=== PATIENT | female | born 1985 | race Caucasian/White ===

== ENCOUNTER 2016-05-24 18:55 | Emergency (ER) | payer MEDICAID ==
--- NOTE | 2016-05-24 20:13 | ED Physician Chart ---
Chief Complaint/HPI - Patient Information Date Seen:: 05/24/16 Time Seen:: 20:12 Chief Complaint:: rash on lip History of Present Illness:: few days hx of rash on outside of rt upper lip. mild tingly feeling. no fever, no uri hx. pt has had kike oral lip sores in past ...not recent. she tried abreva on lesion wo relief. no other carmina pmh. Allergies:: Allergies Allergy/AdvReac Type Severity Reaction Status Date / Time cephalexin monohydrate Allergy Verified 02/04/16 22:10 [From Keflex] Sulfa (Sulfonamide Allergy Verified 02/04/16 22:10 Antibiotics) Vitals:: Vital Signs - 8 hr 05/24/16 19:28 Temp 97.9 F HR 63 RR 18 BP 116/69 O2 Sat % 98 Historian:: Patient Review of Systems - Review of Systems General/Constitutional: No fever, No chills, No weight loss, No weakness, No diaphoresis, No edema, No loss of appetite Skin: Skin lesions, Rash, No bruising Head: No headache, No light-headedness Eyes: No loss of vision, No pain, No diplopia ENT: No earache, No nasal drainage, No sore throat, No tinnitus Neck: No neck pain, No swelling, No thyromegaly, No stiffness, No mass noted Cardio Vascular: No chest pain, No palpitations, No PND, No orthopnea, No edema Pulmonary: No SOB, No cough, No sputum, No wheezing GI: No nausea, No vomiting, No diarrhea, No pain, No melena, No hematochezia, No constipation, No hematemesis G/U: No dysuria, No frequency, No hematuria Musculoskeletal: No bone or joint pain, No back pain, No muscle pain Endocrine: No polyuria, No polydipsia Psychiatric: No prior psych history, No depression, No anxiety, No suicidal ideation Hematopoietic: No bruising, No lymphadenopathy Allergic/Immuno: No urticaria, No angioedema Neurological: No syncope, No focal symptoms, No weakness, No paresthesia, No headache, No seizure, No dizziness, No confusion, No vertigo Past Medical History - Past Medical History Past Medical History: No significant medical hx Social History: Non Smoker Medication: Reviewed Family Medical History - Family Member Mother Hx Family Hypertension: Yes Hx Family Diabetes: Yes Physical Exam - Physical Examination General/Constitutional: Awake, Well-developed, well-nourished, Alert, No distress, GCS 15, Non-toxic appearing, Ambulatory Head: Atraumatic Eyes: Lids, conjuctiva normal, PERRL, EOMI Skin: Nl inspection, No rash, No skin lesions, No ecchymosis, Well hydrated, No lymphadenopathy ENMT: External ears, nose nl, Nasal exam nl, Lips, teeth, gums nl Other ENMT comments:: fingertip sized red blistered area above nury border at rt upper lip region. nontndr. blisters are yellow colored fluid containing. no intraoral lesion. no cough. no sob. no oral edema. no lesions at tip of nose. no ocular irritation Neck: Nontender, Full ROM w/o pain, No JVD, No nuchal rigidity, No bruit, No mass, No stridor Respiratory: Nl effort/Exclusion, Clear to Auscultation, No Wheeze/Rhonchi/Rales Cardio Vascular: RRR, No murmur, gallop, rubs, NL S1 S2 GI: No tenderness/rebounding/guarding, No organomegaly, No hernia, Normal BS's, Nondistended, No mass/bruits, No McBurney tenderness : No CVA tenderness Extremities: No tenderness or effusion, Full ROM, normal strength in all extremities, No edema, Normal digits & nails Neuro/Psych: Alert/oriented, DTR's symmetric, Normal sensory exam, Normal motor strength, Judgement/insight normal, Mood normal, Normal gait, No focal deficits Misc: normal gait, Normal back, No paraspinal tenderness ED Septic Shock - . 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 - Aftercare/Follow up Instructions Aftercare/Follow-Up Instructions:: Counseled pt regarding lab results/diagnosis & need follow up Medication Prescribed:: rx biaxin and valtrex. pt to see pmd in next few days for rechk...or return if worse. - Patient Disposition Discharge/Transfer:: Home Condition at Disposition:: Unchanged
== END 2016-05-24 20:30 | disposition home or self-care (01) ==
LOC: ER 18:55
DX: K13.0 Diseases of lips (principal); Z88.2 Allergy status to sulfonamides; Z88.8 Allergy status to other drugs, medicaments and biological substances
CPT/HCPCS: Z7502

== ENCOUNTER 2016-07-07 18:59 | Emergency (ER) | payer MEDICAID ==
--- NOTE | 2016-07-07 19:53 | ED Physician Chart ---
Chief Complaint/HPI - Patient Information Date Seen:: 07/07/16 Time Seen:: 19:30 Chief Complaint:: pain right foot History of Present Illness:: last attempted to IV inject heroin 5 days ago. Can't remember if she tried to inject in her right foot but she has done so in the past. Awoke this am with pain dorsum right foot which has rapidly increased in severity. No other right foot trauma. No chills, fever, back pain. Last tetanus booster about 1 year ago. Allergies:: Allergies Allergy/AdvReac Type Severity Reaction Status Date / Time cephalexin monohydrate Allergy HIVES Verified 07/07/16 19:28 [From Keflex] Sulfa (Sulfonamide Allergy HIVES Verified 07/07/16 19:28 Antibiotics) Vitals:: Vital Signs - 8 hr 07/07/16 19:05 Temp 97.5 F HR 88 RR 20 BP 116/53 O2 Sat % 100 Historian:: Patient Review:: Nurse's Note Reviewed Review of Systems - Review of Systems General/Constitutional: No fever, No chills Skin: Skin lesions Head: No headache Eyes: No loss of vision ENT: No earache Neck: No neck pain Cardio Vascular: No chest pain, No palpitations Pulmonary: No SOB, No cough GI: No nausea, No vomiting, No diarrhea G/U: No dysuria Musculoskeletal: Bone or joint pain Endocrine: No polyuria, No polydipsia Psychiatric: No depression, No anxiety Hematopoietic: No bruising Allergic/Immuno: No urticaria Neurological: No syncope, No focal symptoms Past Medical History - Past Medical History Past Medical History: No significant medical hx Family History: HTN Social History: Smoker, Illicit Drug Use, Employed Surgical History: Cholecystectomy, , other (tubal ligation) Psychiatricy History: None Medication: None Family Medical History - Family Member Mother Hx Family Hypertension: Yes Hx Family Diabetes: Yes Physical Exam - Physical Examination General/Constitutional: Well-developed, well-nourished, Alert, No distress Head: Atraumatic Eyes: Lids, conjuctiva normal Other Skin comments:: redness and tenderness of dorsum right foot; 2 cm of bright erythema of dorsum ENMT: External ears, nose nl, TM canals nl, Nasal exam nl, Lips, teeth, gums nl , Oropharynx nl, Tonsils nl Neck: No nuchal rigidity Respiratory: Nl effort/Exclusion, Clear to Auscultation, No Wheeze/Rhonchi/Rales Cardio Vascular: RRR, No murmur, gallop, rubs, NL S1 S2 GI: No tenderness/rebounding/guarding, No organomegaly, Normal BS's : No CVA tenderness Extremities: No tenderness or effusion, Full ROM Neuro/Psych: Alert/oriented Misc: Normal back ED Septic Shock - . Is Septic Shock (SBP<90, OR Lactate>4 mmol\L) present?: No - <6hrs of presentation: Vital Signs: Vital Signs - 8 hr 07/07/16 19:05 Temp 97.5 F HR 88 RR 20 BP 116/53 O2 Sat % 100 Reassessment (Disposition) - Reassessment Reassessment:: Patient urged to return immediately if redness or pain increases of fever occurs. Reassessment Condition:: Unchanged - Diagnosis Diagnosis:: Cellulitis right foot - Aftercare/Follow up Instructions Aftercare/Follow-Up Instructions:: Refer to Discharge Instructions Medication Prescribed:: Clindamycin 300 mg QID for 10 days - Patient Disposition Discharge/Transfer:: Home Condition at Disposition:: Stable, Unchanged
== END 2016-07-07 20:15 | disposition home or self-care (01) ==
LOC: ER 18:59
DX: L03.115 Cellulitis of right lower limb (principal); F17.200 Nicotine dependence, unspecified, uncomplicated; Z88.2 Allergy status to sulfonamides; Z88.1 Allergy status to other antibiotic agents
CPT/HCPCS: Z7502; Z7610

== ENCOUNTER 2016-07-10 23:37 | Emergency (ER) | payer MEDICAID ==
[2016-07-11] MEDS ORDERED: EPINEPHRine /Lidocaine 1% 20 mL Vial INJ ONE ×2 (00:08→00:11)
--- NOTE | 2016-07-11 00:16 | ED Physician Chart ---
Chief Complaint/HPI - Patient Information Date Seen:: 07/11/16 Time Seen:: 23:55 Chief Complaint:: right foot pain History of Present Illness:: pt seen here for IV drug injection site infection with cellulitis 07/07. got clindamycin with 'much better appaerance' per pt but now has central area of red , painful, swelling. Allergies:: Allergies Allergy/AdvReac Type Severity Reaction Status Date / Time cephalexin monohydrate Allergy HIVES Verified 07/07/16 19:28 [From Keflex] Sulfa (Sulfonamide Allergy HIVES Verified 07/07/16 19:28 Antibiotics) Vitals:: Vital Signs - 8 hr 07/10/16 23:55 Temp 98.6 F HR 94 RR 18 BP 139/94 O2 Sat % 100 Historian:: Patient, Family Member Review:: Nurse's Note Reviewed, Old Chart Reviewed Review of Systems - Review of Systems General/Constitutional: No fever, No chills, No weakness Skin: Skin lesions Head: No headache Neck: No neck pain, No swelling, No thyromegaly, No stiffness, No mass noted Cardio Vascular: No chest pain, No palpitations, No PND, No orthopnea, No edema Pulmonary: No SOB, No cough, No sputum, No wheezing GI: No nausea, No vomiting, No diarrhea, No pain, No melena, No hematochezia, No constipation, No hematemesis G/U: No dysuria, No frequency, No hematuria Musculoskeletal: No bone or joint pain, No back pain, No muscle pain Hematopoietic: No bruising, No lymphadenopathy Neurological: No syncope, No focal symptoms, No weakness, No paresthesia, No headache, No seizure, No dizziness, No confusion, No vertigo Past Medical History - Past Medical History Past Medical History: Other (IV drug abuse) Social History: Smoker, Employed Surgical History: Cholecystectomy, Psychiatricy History: None Medication: Reviewed (clindamycin) Family Medical History - Family Member Mother History Unknown: Yes Ethnicity: Non- Living Status: Unknown Hx Family Hypertension: Yes Hx Family Diabetes: Yes Physical Exam - Physical Examination General/Constitutional: Well-developed, well-nourished, Alert, GCS 15, Non- toxic appearing, Ambulatory Head: Atraumatic Eyes: Lids, conjuctiva normal, PERRL, EOMI Skin: Nl inspection, Well hydrated Cardio Vascular: RRR, No murmur, gallop, rubs, NL S1 S2 Other Extremities comments:: right dorsum foot with large midline 2x2cm tense red sl fluctuant mass that is warm, quite tender surrounded by blanching erythema ~4x4 cm and some generalized edema. Neuro/Psych: Alert/oriented, Mood normal, No focal deficits Assessment - Procedures Procedures:: right foot soft tissue abscess: incision and drainage: cleanse with providone;1% lido w/epi injected locally with good anaesthesia obtained; #11 blade sharp incision 1/2 cm over wound w/ copious nonsmelling white thin purosanguinous liquid expressed completely; wound edge debrided and 1/4" iodine guaze packing inserted into extent of wound; recleansed and dressed with bacitracin ointment/ dressing. pt tolerated procedure well Informed Consent: Procedure/risk/benefits explained by MD: Yes (pt informed) ED Septic Shock - . Is Septic Shock (SBP<90, OR Lactate>4 mmol\\L) present?: No - <6hrs of presentation: Vital Signs: Vital Signs - 8 hr 07/10/16 23:55 Temp 98.6 F HR 94 RR 18 BP 139/94 O2 Sat % 100 Reassessment (Disposition) - Reassessment Reassessment Condition:: Improved - Diagnosis Diagnosis:: right foot soft tissue abscess with incision, drainage, packing; partially treated with antibx at time of procedure. - Aftercare/Follow up Instructions Aftercare/Follow-Up Instructions:: Counseled pt regarding lab results/diagnosis & need follow up, Refer to Discharge Instructions - Patient Disposition Discharge/Transfer:: Home ED Discharge Plan - Patient Disposition Admit/Discharge/Transfer: PT DISCHARGED HOME Condition at Disposition: Stable Additional Instructions: continue antibiotics. elevate foot. keep area clean and dry/do not soak!. recheck in 2 days for packing removal and reassessment. sooner if unexpected new problems like fever, spreading redness.
[2016-07-11] MEDS ORDERED: Triple Antibiotic 0.94 gm Pkt TP STA (00:38)
[2016-07-11] MEDS ORDERED: Triple Antibiotic 0.94 gm Pkt TP ONE (00:39)
== END 2016-07-11 01:00 | disposition home or self-care (01) ==
LOC: ER 23:37
DX: L02.611 Cutaneous abscess of right foot (principal); F17.200 Nicotine dependence, unspecified, uncomplicated; Z88.2 Allergy status to sulfonamides; Z88.1 Allergy status to other antibiotic agents
CPT/HCPCS: 10060; X6488; Z7502; Z7610

== ENCOUNTER 2016-07-12 22:33 | Emergency (ER) | payer MEDICAID ==
--- NOTE | 2016-07-12 22:36 | ED Physician Chart ---
Chief Complaint/HPI - Patient Information Date Seen:: 07/12/16 Time Seen:: 22:35 Chief Complaint:: wound check History of Present Illness:: 30-year-old female with acute, moderate, abscess of the right foot that started about 10 days ago. Has been taking clindamycin. Had I&D 2 days ago. Has associated surrounding cellulitis. Symptoms have not improved. Allergies:: Allergies Allergy/AdvReac Type Severity Reaction Status Date / Time cephalexin monohydrate Allergy HIVES Verified 07/07/16 19:28 [From Keflex] Sulfa (Sulfonamide Allergy HIVES Verified 07/07/16 19:28 Antibiotics) Historian:: Patient Review:: Nurse's Note Reviewed Review of Systems - Review of Systems Other: Complete system review otherwise unremarkable except as noted in HPI. Past Medical History - Past Medical History Past Medical History: HTN Family History: None Social History: Non Smoker, No Alcohol, No Drug Use, Employed Surgical History: None Psychiatricy History: None Medication: Reviewed Family Medical History - Family Member Mother History Unknown: Yes Ethnicity: Non- Living Status: Unknown Hx Family Hypertension: Yes Hx Family Diabetes: Yes Physical Exam - Physical Examination Other:: INITIAL VITAL SIGNS: Reviewed by me GENERAL: Alert and interactive. No acute distress HEAD: Head is normocephalic and atraumatic EYES: EOMI. . No scleral icterus. No conjunctival injection ENT: Moist mucous membranes. NECK: Supple. No masses. Full range of motion RESPIRATORY: No tachypnea. Clear breath sounds bilaterally. No wheezing, rales, or rhonchi CV: Regular rate and rhythm. No murmurs, rubs, or gallops ABDOMEN: Soft, non-distended, non-tender. No guarding. No rebound. No masses. EXTREMITIES: Right foot dorsum has area of erythema and induration about 6 x 6 cm. There is an open draining wound with purulent pus. Good neurovascular status the distal extremity. SKIN: Warm and dry. No obvious rashes. NEUROLOGIC: Alert and oriented. Face is symmetric. Speech is normal. Moves all extremities equally. Motor and sensory distally intact. Assessment - Procedures Procedures:: Abscess Incision and Drainage with irrigation by me: Location: Right foot dorsum Anesthesia: Local 1% Lidocaine Technique: Irrigated. Disrupted loculations w/ instrumentation Packing: Iodoform Complications: Neurovascularly intact post procedure 48 hour wound check. Scar minimization instructions given. Informed Consent: Procedure/risk/benefits explained by MD: Yes ED Septic Shock - . Is Septic Shock (SBP<90, OR Lactate>4 mmol\L) present?: No Reassessment (Disposition) - Reassessment Reassessment:: Patient has abscess and surrounding cellulitis of the right foot on the dorsum area. This was been treated with clindamycin originally. Then it was I&D 2 days ago. There is no sign of healing. The incision was quite small. Patient removed packing and did not repack it. One may be closing up prematurely. Area was re-incised to a larger degree. More packing was placed. Antibiotics were changed. Patient has allergy to Keflex and sulfa medications. Accordingly , amoxicillin 500 mg 3 times a day and doxycycline 100 mg twice a day were prescribed. Patient received first dose here in the ER. Follow up PCP and wound check within 2 days. Return to ER precautions were given. Patient understands and agrees with the plan. Reassessment Condition:: Improved - Diagnosis Diagnosis:: Abscess, right foot Cellulitis, right foot - Aftercare/Follow up Instructions Aftercare/Follow-Up Instructions:: Counseled pt regarding lab results/diagnosis & need follow up, Refer to Discharge Instructions Medication Prescribed:: Amoxicillin 500 mg 3 times a day Doxycycline 100 mg twice a day - Patient Disposition Discharge/Transfer:: Home Time:: 23:13 Condition at Disposition:: Improved ED Discharge Plan - Patient Disposition Admit/Discharge/Transfer: PT DISCHARGED HOME Condition at Disposition: Improved Instructions: Abscess, Cellulitis
== END 2016-07-12 23:37 | disposition home or self-care (01) ==
LOC: ER 22:33
DX: L02.611 Cutaneous abscess of right foot (principal); L03.115 Cellulitis of right lower limb; I10 Essential (primary) hypertension; Z88.1 Allergy status to other antibiotic agents; Z88.2 Allergy status to sulfonamides
CPT/HCPCS: Z7502; Z7610

== ENCOUNTER 2016-10-10 20:17 | Emergency (ER) | payer MEDICAID ==
--- NOTE | 2016-10-10 20:20 | ED Physician Chart ---
Chief Complaint/HPI - Patient Information Date Seen:: 10/10/16 Time Seen:: 20:17 Chief Complaint:: ankle pain History of Present Illness:: 31-year-old female complains of acute, worsening, constant, worse with weightbearing, nonradiating, left ankle pain that started 2 weeks ago after she tripped and twisted her ankle. This had swelling and slight ecchymosis of the inner and outer ankle area of the left foot. Allergies:: Allergies Allergy/AdvReac Type Severity Reaction Status Date / Time cephalexin monohydrate Allergy HIVES Verified 07/12/16 22:55 [From Keflex] Sulfa (Sulfonamide Allergy HIVES Verified 07/12/16 22:55 Antibiotics) Historian:: Patient Review:: Nurse's Note Reviewed Review of Systems - Review of Systems Other: Complete system review otherwise unremarkable except as noted in history of present illness. Past Medical History - Past Medical History Obtainable: Yes Past Medical History: No significant medical hx Family History: None Social History: Non Smoker, No Alcohol, No Drug Use, Other Surgical History: None Psychiatricy History: None Medication: None Family Medical History - Family Member Mother History Unknown: Yes Ethnicity: Non- Living Status: Unknown Hx Family Cancer: No Hx Family Coronary Artery Disease: No Hx Family Hypertension: Yes Hx Family Diabetes: Yes Physical Exam - Physical Examination Other:: INITIAL VITAL SIGNS: Reviewed by me GENERAL: Alert and interactive. No acute distress HEAD: Head is normocephalic and atraumatic EYES: EOMI. No scleral icterus. No conjunctival injection ENT: Moist mucous membranes. NECK: Supple. No masses. Full range of motion RESPIRATORY: No tachypnea. Clear breath sounds bilaterally. No wheezing, rales, or rhonchi CV: Regular rate and rhythm. No murmurs, rubs, or gallops ABDOMEN: Soft, non-distended, non-tender. No guarding. No rebound. No masses. EXTREMITIES: Ankle edematous with slight ecchymosis over the lateral aspect of the lateral malleolus. Range of motion slightly limited due to pain. SKIN: Warm and dry. No obvious rashes. NEUROLOGIC: Alert and oriented. Face is symmetric. Speech is normal. Moves all extremities equally. Motor and sensory distally intact. Labs/Radiology/EKG Results - Radiology Results Results: X-ray left Ankle 3V Interpreted by me: Bones: No fracture Joints: No dislocation Foreign Body: None ED Septic Shock - . Is Septic Shock (SBP<90, OR Lactate>4 mmol\L) present?: No Reassessment (Disposition) - Reassessment Reassessment:: Vision suffered left ankle injury about 2 weeks ago. Images unremarkable for any acute fracture. She has swelling and some edema. Likely suffered severe sprain. Placed air splint on the ankle. Advised elevation, rest, ice. Follow- up PCP 1 to days. Extremities are preliminary x-ray findings and that may need repeat x-ray in 1 week if symptoms persist. Return precautions given. Patient says she understands and agrees with plan. Blood pressure was noted to be elevated over 120/80. There were no signs of hypertension. Discussed the findings with the patient and recommended that the patient follow up with the primary care physician regarding the elevated blood pressure. - Diagnosis Diagnosis:: Acute left ankle pain due to acute left ankle sprain, initial visit Elevated blood pressure without the diagnosis of hypertension - Aftercare/Follow up Instructions Aftercare/Follow-Up Instructions:: Counseled pt regarding lab results/diagnosis & need follow up, Refer to Discharge Instructions - Patient Disposition Discharge/Transfer:: Home Time:: 22:07 Condition at Disposition:: Improved ED Discharge Plan - Patient Disposition Admit/Discharge/Transfer: PT DISCHARGED HOME Condition at Disposition: Improved Instructions: Ankle Sprain, [id number]
--- NOTE | 2016-10-11 13:22 | Diagnostic Imaging Report ---
Left ankle (3 views) HISTORY: Pain Soft tissue swelling. No acute bony abnormalities. No fractures. Minimal spur formation seen off the plantar aspect of the posterior calcaneus. IMPRESSION: 1. No acute bony abnormalities 2. Minimal calcaneal spur formation
== END 2016-10-10 22:15 | disposition home or self-care (01) ==
LOC: ER 20:17
DX: S93.402A Sprain of unspecified ligament of left ankle, initial encounter (principal); R03.0 Elevated blood-pressure reading, without diagnosis of hypertension; Z88.2 Allergy status to sulfonamides; Z88.1 Allergy status to other antibiotic agents; W18.40XA Slipping, tripping and stumbling without falling, unspecified, initial encounter; Y93.89 Activity, other specified; Y92.89 Other specified places as the place of occurrence of the external cause; Y99.8 Other external cause status
CPT/HCPCS: 73610-TC; Z7502

== ENCOUNTER 2016-12-01 21:51 | Emergency (ER) | payer MEDICAID ==
[2016-12-01] MEDS ORDERED: Sodium Chloride 0.9% 1,000 ML IV ONE (22:18)
--- NOTE | 2016-12-01 22:29 | ED Physician Chart ---
Chief Complaint/HPI - Patient Information Date Seen:: 12/01/16 Time Seen:: 22:10 Chief Complaint:: vomiting, chills and myalgia History of Present Illness:: Patient started taking methadone 3 days ago. She had been injecting heroin for 2 years. She's been vomiting for 2 days 4-5 times per day initially and 2 times today. Patient did not make it to her methadone clinic today. She has chills and felt warm and has whole-body myalgia. Allergies:: Allergies Allergy/AdvReac Type Severity Reaction Status Date / Time cephalexin monohydrate Allergy HIVES Verified 07/12/16 22:55 [From Keflex] Sulfa (Sulfonamide Allergy HIVES Verified 07/12/16 22:55 Antibiotics) Vitals:: Vital Signs - 8 hr 12/01/16 21:57 Temp 99.6 F HR 99 RR 17 BP 131/80 O2 Sat % 97 Historian:: Patient Review:: Nurse's Note Reviewed Review of Systems - Review of Systems General/Constitutional: Fever, Chills Skin: No skin lesions Head: No headache Eyes: No loss of vision ENT: No earache Neck: No neck pain Cardio Vascular: No chest pain, No palpitations Pulmonary: No SOB GI: Nausea, Vomiting G/U: No dysuria Musculoskeletal: Bone or joint pain, Back pain, Muscle pain Endocrine: No polyuria, No polydipsia Psychiatric: Prior psych history, Depression, Anxiety Hematopoietic: No bruising Allergic/Immuno: No urticaria Neurological: No syncope Past Medical History - Past Medical History Past Medical History: HTN, Asthma/COPD Family History: HTN Social History: Smoker, Alcohol, Other (smokes one to one half packages of cigarettes a day and drinks alcohol especially on the weekends) Surgical History: , other (tubal ligation) Psychiatricy History: Depression, Other (anxiety) Medication: Reviewed Family Medical History - Family Member Mother History Unknown: Yes Ethnicity: Non- Living Status: Unknown Hx Family Cancer: No Hx Family Coronary Artery Disease: No Hx Family Hypertension: Yes Hx Family Diabetes: Yes Physical Exam - Physical Examination General/Constitutional: Well-developed, well-nourished, Alert Head: Atraumatic Eyes: Lids, conjuctiva normal, PERRL Other Eyes comments:: Pupils about 1/4 mm in diameter Skin: Nl inspection, No rash, No skin lesions, No ecchymosis ENMT: External ears, nose nl, TM canals nl, Nasal exam nl, Lips, teeth, gums nl , Oropharynx nl, Tonsils nl Neck: No nuchal rigidity Respiratory: Nl effort/Exclusion, Clear to Auscultation, No Wheeze/Rhonchi/Rales Cardio Vascular: RRR, No murmur, gallop, rubs GI: No tenderness/rebounding/guarding, No organomegaly, No hernia : No CVA tenderness Extremities: No tenderness or effusion, Full ROM, No edema, Normal digits & nails Neuro/Psych: No focal deficits Misc: Normal back Assessment - Assessment General Assessment: at 0115 patient feels better. Patient can get her methadone a few hours. ED Septic Shock - . Is Septic Shock (SBP<90, OR Lactate>4 mmol\L) present?: No - <6hrs of presentation: Vital Signs: Vital Signs - 8 hr 12/01/ 21:57 Temp 99.6 F HR 99 RR 17 BP 131/80 O2 Sat % 97 Reassessment (Disposition) - Reassessment Reassessment Condition:: Improved - Diagnosis Diagnosis:: Opioid withdrawal; hypomagnesemia - Aftercare/Follow up Instructions Aftercare/Follow-Up Instructions:: Refer to Discharge Instructions - Patient Disposition Discharge/Transfer:: Home Condition at Disposition:: Stable, Improved
[2016-12-01 22:42] LABS: % LYMPHOCYTES 21.3 % (20.0-50.0); % NEUTROPHILS 67.7 % (40.0-80.0); HEMATOCRIT 35.2 % (35.0-45.0); HEMOGLOBIN 11.7 gm/dL (11.7-15.5); MEAN CELL VOLUME 88.7 fl (81-100); MEAN CORPUSCULAR HEMOGLOBIN 29.5 pg (27.0-31.0); MEAN CORPUSCULAR HGB CONC 33.2 pg (28.0-36.0); MEAN PLATELET VOLUME 7.6 fl; NEUTROPHILE ABSOLUTE 7.3 Th/cmm (1.8-8.0); PLATELET COUNT 256 Th/cmm (150-400); RED BLOOD COUNT 3.97 Mil/cmm (3.80-5.10); RED CELL DISTRIBUTION WIDTH 12.5 % (11.5-20.0); WHITE BLOOD COUNT 10.8 Th/cmm (4.8-10.8)
[2016-12-01 22:54] LABS: ANION GAP 6.9 (7.0-16.0); BUN - UREA NITROGEN 7 mg/dL (7-25); CALCIUM SERUM 8.5 mg/dL (8.6-10.3); CARBON DIOXIDE 26.4 mEq/L (21.0-31.0); CHLORIDE 103 mEq/L (98-107); CREATININE - SERUM 0.7 mg/dL (0.6-1.2); GLUCOSE 121 mg/dL (70-105); MAGNESIUM 1.8 mg/dL (1.9-2.7); POTASSIUM SERUM 3.3 mEq/L (3.5-5.1); SODIUM SERUM 133 mEq/L (136-145)
[2016-12-01] MEDS ORDERED: Mag Sulfate 2gm/50mL Premix 2 GM/50 ML BAG IV ONE ×2 (23:16→23:20)
[2016-12-01] MEDS ORDERED: Potassium Chloride 20 mEq ER Tab PO ONE ×2 (23:18→23:19)
== END 2016-12-02 01:37 | disposition home or self-care (01) ==
LOC: ER 21:51
DX: F11.23 Opioid dependence with withdrawal (principal); E83.42 Hypomagnesemia; I10 Essential (primary) hypertension; J44.9 Chronic obstructive pulmonary disease, unspecified; J45.909 Unspecified asthma, uncomplicated; F17.210 Nicotine dependence, cigarettes, uncomplicated; Z88.1 Allergy status to other antibiotic agents; Z88.2 Allergy status to sulfonamides
CPT/HCPCS: 99285; 96365; 96361; 96366; 96375; 36415; 85025; 83735; 80048; J3475; J1885; J2405; J7030; Z7610

== ENCOUNTER 2017-01-27 06:25 | Emergency (ER) | payer MEDICAID ==
--- NOTE | 2017-01-27 07:20 | ED Physician Chart ---
ED Chief Complaint/HPI - Patient Information Date Seen:: 01/27/17 Time Seen:: 07:00 Chief Complaint:: CONSTIPATION History of Present Illness:: THIS IS A 31 YEAR OLD FEMALE METHADONE PATIENT WHO THINKS THAT SHE IS CONSTIPATED FROM TAKING METHADONE. SHE STATES THAT SHE TOOK MULTIPLE DOSES OF MEDICINE FOR THE CONSTIPATION AND NOW HAVING DIARRHEA. SHE DENIES NAUSEA AND VOMITING. Allergies:: Allergies Allergy/AdvReac Type Severity Reaction Status Date / Time cephalexin monohydrate Allergy HIVES Verified 07/12/16 22:55 [From Keflex] Sulfa (Sulfonamide Allergy HIVES Verified 07/12/16 22:55 Antibiotics) Vitals:: Vital Signs - 8 hr 01/27/17 06:30 Temp 98.2 F HR 74 RR 19 BP 121/74 O2 Sat % 97 Historian:: Patient, Family Member Review:: Nurse's Note Reviewed ED Review of Systems - Review of Systems General/Constitutional: No fever, No chills, No weight loss, No weakness, No diaphoresis, No edema, No loss of appetite Skin: No skin lesions, No rash, No bruising Head: No headache, No light-headedness Eyes: No loss of vision, No pain, No diplopia ENT: No earache, No nasal drainage, No sore throat, No tinnitus Neck: No neck pain, No swelling, No thyromegaly, No stiffness, No mass noted Cardio Vascular: No chest pain, No palpitations, No PND, No orthopnea, No edema Pulmonary: No SOB, No cough, No sputum, No wheezing GI: No nausea, No vomiting, Diarrhea, No pain, No melena, No hematochezia, No constipation, No hematemesis G/U: No dysuria, No frequency, No hematuria Musculoskeletal: No bone or joint pain, No back pain, No muscle pain Endocrine: No polyuria, No polydipsia Psychiatric: No prior psych history, No depression, No anxiety, No suicidal ideation Hematopoietic: No bruising, No lymphadenopathy Allergic/Immuno: No urticaria, No angioedema Neurological: No syncope, No focal symptoms, No weakness, No paresthesia, No headache, No seizure, No dizziness, No confusion, No vertigo ED Past Medical History - Past Medical History Obtainable: Yes Past Medical History: HTN, Asthma/COPD, Other (DRUG DEPENDED) Family History: None Social History: Non Smoker, No Alcohol, Illicit Drug Use Surgical History: Cholecystectomy, , other (TUBES TIED) Psychiatricy History: None Medication: Reviewed Family Medical History - Family Member Mother History Unknown: Yes Ethnicity: Non- Living Status: Unknown Hx Family Cancer: No Hx Family Coronary Artery Disease: No Hx Family Hypertension: Yes Hx Family Diabetes: Yes ED Physical Exam - Physical Examination General/Constitutional: Awake, Well-developed, well-nourished, Alert, No distress, GCS 15, Non-toxic appearing, Ambulatory Head: Atraumatic Eyes: Lids, conjuctiva normal, PERRL, EOMI Skin: Nl inspection, No rash, No skin lesions, No ecchymosis, Well hydrated, No lymphadenopathy ENMT: External ears, nose nl, Nasal exam nl, Lips, teeth, gums nl Neck: Nontender, Full ROM w/o pain, No JVD, No nuchal rigidity, No bruit, No mass, No stridor Respiratory: Nl effort/Exclusion, Clear to Auscultation, No Wheeze/Rhonchi/Rales Cardio Vascular: RRR, No murmur, gallop, rubs, NL S1 S2 GI: No organomegaly, No hernia, Normal BS's, Nondistended, No mass/bruits, No McBurney tenderness Other GI comments:: THE ABDOMEN IS SOFT AND DIFFUSELY TENDER WITH SLIGHT REBOUND BUT IS NOT DISTENDED. : No CVA tenderness Extremities: No tenderness or effusion, Full ROM, normal strength in all extremities, No edema, Normal digits & nails Neuro/Psych: Alert/oriented, DTR's symmetric, Normal sensory exam, Normal motor strength, Judgement/insight normal, Mood normal, Normal gait, No focal deficits Misc: normal gait, Normal back, No paraspinal tenderness ED Labs/Radiology/EKG Results - Lab Results Results: Abnormal Lab Results 01/27/17 01/27/17 01/27/17 07:18 07:18 07:18 WBC 10.0 RBC 4.17 Hgb 11.9 Hct 35.4 MCV 84.8 MCH 28.6 MCHC Differential 33.7 RDW 13.9 Plt Count 192 D MPV 8.9 Neutrophils % 69.9 Lymphocytes % 17.0 L Monocytes % 6.2 Eosinophils % 3.6 Basophils % 3.3 H PT 10.1 INR 0.97 PTT (Actin FS) 25.4 L Sodium Potassium Chloride Carbon Dioxide Anion Gap BUN Creatinine Est GFR ( Amer) Est GFR (Non-Af Amer) BUN/Creatinine Ratio Glucose Calcium Total Bilirubin AST ALT Alkaline Phosphatase Troponin I Total Protein Albumin Globulin Albumin/Globulin Ratio Triglycerides 75 Cholesterol 123 LDL Cholesterol Direct 78 HDL Cholesterol 46 TSH 01/27/17 01/27/17 01/27/17 07:18 07:18 07:18 WBC RBC Hgb Hct MCV MCH MCHC Differential RDW Plt Count MPV Neutrophils % Lymphocytes % Monocytes % Eosinophils % Basophils % PT INR PTT (Actin FS) Sodium 134 L Potassium 3.1 L Chloride 105 Carbon Dioxide 26.0 Anion Gap 6.1 L BUN 9 Creatinine 0.8 Est GFR ( Amer) > 60.0 Est GFR (Non-Af Amer) > 60.0 BUN/Creatinine Ratio 11.3 Glucose 90 Calcium 9.0 Total Bilirubin 0.5 AST 21 ALT 12 Alkaline Phosphatase 39 Troponin I < 0.01 L Total Protein 6.3 Albumin 3.7 Globulin 2.6 Albumin/Globulin Ratio 1.4 Triglycerides Cholesterol LDL Cholesterol Direct HDL Cholesterol TSH 0.67 - Radiology Results Results: CT SCAN OF THE ABDOMEN = NO CONSTIPATION ED Assessment - Assessment General Assessment: DRUG ABUSE (METH/AMPHET) DEHYDRATION ED Septic Shock - . Is Septic Shock (SBP<90, OR Lactate>4 mmol\L) present?: No - <6hrs of presentation: Vital Signs: Vital Signs - 8 hr 01/27/17 06:30 Temp 98.2 F HR 74 RR 19 BP 121/74 O2 Sat % 97 ED Reassessment (Disposition) - Reassessment Reassessment Condition:: Unchanged - Diagnosis Diagnosis:: DRUG ABUSE (METH) DEHYDRATION - Patient Disposition Discharge/Transfer:: Against Medical Advice (SHE LEFT BECAUSE SHE WANTED TO SMOKE OUTSIDE AND WE COULD NOT LET HER GO.) ED Discharge Plan - Patient Disposition Admit/Discharge/Transfer: AGAINST MEDICAL ADVICE Condition at Disposition: Stable
[2017-01-27 07:28] LABS: % BASOPHILS 3.3 % (0.0-2.0); % EOSINOPHILS 3.6 % (0.0-5.0); % MONOCYTES 6.2 % (2.0-10.0); % NEUTROPHILS 69.9 % (40.0-80.0); HEMATOCRIT 35.4 % (35.0-45.0); HEMOGLOBIN 11.9 gm/dL (11.7-15.5); MEAN CELL VOLUME 84.8 fl (81-100); MEAN CORPUSCULAR HEMOGLOBIN 28.6 pg (27.0-31.0); MEAN CORPUSCULAR HGB CONC 33.7 pg (28.0-36.0); MEAN PLATELET VOLUME 8.9 fl; PLATELET COUNT 192 Th/cmm (150-400); RED BLOOD COUNT 4.17 Mil/cmm (3.80-5.10); RED CELL DISTRIBUTION WIDTH 13.9 % (11.5-20.0)
[2017-01-27 07:41] LABS: INR 0.97 (0.5-1.4); PROTHROMBIN TIME (TEST) 10.1 SECONDS (9.5-11.5)
[2017-01-27 07:45] LABS: CHOLESTEROL 123 mg/dL (<200); TRIGLYCERIDES 75 mg/dL (<150)
[2017-01-27 07:47] LABS: ALB/GLOB RATIO 1.4 (1.0-1.8); ALKALINE PHOSPHATASE 39 U/L (34-104); ANION GAP 6.1 (7.0-16.0); BILIRUBIN,TOTAL 0.5 mg/dL (0.3-1.0); BUN - UREA NITROGEN 9 mg/dL (7-25); BUN/CREATININE RATIO 11.3; CHLORIDE 105 mEq/L (98-107); CREATININE - SERUM 0.8 mg/dL (0.6-1.2); GLUCOSE 90 mg/dL (70-105); POTASSIUM SERUM 3.1 mEq/L (3.5-5.1); SGOT 21 U/L (13-39); SGPT/ALT 12 U/L (7-52); SODIUM SERUM 134 mEq/L (136-145)
[2017-01-27] MEDS ORDERED: Potassium Chloride Elixir 20 mEq /15 mL UDC PO ONE (07:50)
[2017-01-27] MEDS ORDERED: Potassium Chloride Elixir 20 mEq /15 mL UDC ONE (07:56)
[2017-01-27] MEDS ORDERED: Sodium Chloride 0.9% 1,000 ML IV ONE (08:26)
[2017-01-27] MEDS ORDERED: IOHEXOL 300MG/ML 100 ML VIAL IVP ONE (09:40)
[2017-01-27] MEDS ORDERED: Lactated Ringer 1,000 ML IV ONE (10:16)
--- NOTE | 2017-01-27 10:44 | Diagnostic Imaging Report ---
Exam: CT examination abdomen pelvis. HISTORY: Abdominal pain Total DLP equals 576 CTDI equals 11.6 Findings: Multiple contiguous thin section of the abdomen pelvis obtained from lower thorax to pubic symphysis with administration of intravenous contrast material. Oral contrast was not utilized. No prior studies available comparison. The study demonstrates a normal aeration of lung parenchyma the bases The liver and spleen are normal. The spleen is enlarged. The gallbladder is resected. The common bile duct is prominent which is not unusual for status post cholecystectomy. The adrenal glands are normal. The kidneys concentrate and excrete contrast material normal fashion. The bowel gas distribution nonspecific. No free fluid is noted. The uterus is prominent with distention of the endometrial canal, clinical correlation ultrasound examination of pelvis might be helpful. The uterine bladder is normal. Bony structures demonstrate no evidence for lytic or blastic changes. The appendix appears to be intact. There is no evidence of diverticular process or diverticulitis IMPRESSION 1. Bulky inhomogeneous uterus with prominence of endometrial canal. Clinical correlation ultrasound examination of pelvis recommended. Status post cholecystectomy
[2017-01-27 10:51] LABS: URINE BILIRUBIN NEGATIVE (NEGATIVE); URINE BLOOD NEGATIVE (NEGATIVE); URINE GLUCOSE (UA) NEGATIVE (NEGATIVE); URINE KETONE 15 mg/dL (NEGATIVE); URINE PH 5.5 (4.6 - 8.0); URINE PROTEIN NEGATIVE (NEGATIVE); URINE UROBILINOGEN 0.2 E.U./dL (0.2 - 1.0)
[2017-01-27 10:54] LABS: URINE COLOR YELLOW
[2017-01-27 10:55] LABS: URINE BACTERIA FEW /hpf (NONE SEEN); URINE EPITHELIAL CELLS FEW /lpf (FEW); URINE RBC 0-2 /hpf (0-5); URINE WBC 0-2 /hpf (0-5)
[2017-01-27 10:57] LABS: AMPHETAMINE URINE POSITIVE (NEGATIVE)
[2017-01-27 10:58] LABS: BARBITURATES URINE NEGATIVE (NEGATIVE); METHADONE URINE POSITIVE (NEGATIVE)
== END 2017-01-27 11:35 | disposition left against medical advice (07) ==
LOC: ER 06:25
DX: E86.0 Dehydration (principal); F10.10 Alcohol abuse, uncomplicated; I10 Essential (primary) hypertension; J45.909 Unspecified asthma, uncomplicated; J44.1 Chronic obstructive pulmonary disease with (acute) exacerbation
CPT/HCPCS: 99285; 96361; 96374; 96375; 74177; 84484; 36415; 80307; 84443; 86592; 85025; 85610; 85730; 81001; 80053; 80061; J2060; J2405; J7030; Q9967

== ENCOUNTER 2017-11-15 22:42 | Emergency (ER) | payer MEDICAID ==
[~2017-11-15 22:42] MED LIST: Bacitracin pkt 1 gm Pkt TP STA
[2017-11-15] MEDS ORDERED: Bacitracin pkt 1 gm Pkt TP ONE (23:04)
--- NOTE | 2017-11-16 05:28 | ED Physician Chart ---
ED Chief Complaint/HPI - Patient Information Date Seen:: 11/15/17 Time Seen:: 22:50 Chief Complaint:: Insect Bites History of Present Illness:: onset x 3 days of LUE locailzed erythema and mild swelling around a few insect bite wounds; pt denies pain, trauma, LOC, ALOC, AMS, H/As, S/T, neck pain , cough, C/P, SOB, Abd. Pain, A/N/V/D/C, fever, chills, or urinary s/s; pt's last tetanus shot: < 5 years; UTD Allergies:: Allergies Allergy/AdvReac Type Severity Reaction Status Date / Time cephalexin monohydrate Allergy HIVES Verified 11/15/17 23:09 [From Keflex] Sulfa (Sulfonamide Allergy HIVES Verified 11/15/17 23:09 Antibiotics) Vitals:: Vital Signs - 8 hr 11/15/17 22:50 Temp 98.5 F HR 85 RR 18 BP 122/57 O2 Sat % 98 Historian:: Patient Review:: Nurse's Note Reviewed ED Review of Systems - Review of Systems General/Constitutional: No fever, No chills, No weight loss, No weakness, No diaphoresis, No edema, No loss of appetite Skin: Skin lesions, No rash, No bruising Head: No headache, No light-headedness Eyes: No loss of vision, No pain, No diplopia ENT: No earache, No nasal drainage, No sore throat, No tinnitus Neck: No neck pain, No swelling, No thyromegaly, No stiffness, No mass noted Cardio Vascular: No chest pain, No palpitations, No PND, No orthopnea, No edema Pulmonary: No SOB, No cough, No sputum, No wheezing GI: No nausea, No vomiting, No diarrhea, No pain, No melena, No hematochezia, No constipation, No hematemesis G/U: No dysuria, No frequency, No hematuria, No nacturia Electronics Parts Sales Representative: No vaginal discharge, No abnormal vaginal bleed, No contraction Musculoskeletal: No bone or joint pain, No back pain, No muscle pain Endocrine: No polyuria, No polydipsia Psychiatric: No prior psych history, No depression, No anxiety, No suicidal ideation, No homicidal ideation, No auditory hallucination, No visual hallucination Hematopoietic: No bruising, No lymphadenopathy Allergic/Immuno: No urticaria, No angioedema Neurological: No syncope, No focal symptoms, No weakness, No paresthesia, No headache, No seizure, No dizziness, No confusion, No vertigo ED Past Medical History - Past Medical History Obtainable: Yes Past Medical History: No significant medical hx Family History: HTN Social History: Non Smoker, No Alcohol, No Drug Use, Surgical History: None Psychiatricy History: None Medication: Reviewed Family Medical History - Family Member Mother History Unknown: Yes Ethnicity: Non- Living Status: Unknown Hx Family Cancer: No Hx Family Coronary Artery Disease: No Hx Family Hypertension: Yes Hx Family Diabetes: Yes ED Physical Exam - Physical Examination General/Constitutional: Awake, Well-developed, well-nourished, Alert, No distress, GCS 15, Non-toxic appearing, Ambulatory Head: Atraumatic Eyes: Lids, conjuctiva normal, PERRL, EOMI Skin: Nl inspection, No rash, No skin lesions, No ecchymosis, Well hydrated, No lymphadenopathy Other Skin comments:: + Localized Cellulitis around scattered insect bite PWs at the LUE region; no FBs; no septic joints; full active ROMs of all joints; no loss of ROMs; no ligament instability; good motor, tendon, and sensory functions; good NV functions ENMT: External ears, nose nl, TM canals nl, Nasal exam nl, Lips, teeth, gums nl , Oropharynx nl, Tonsils nl Neck: Nontender, Full ROM w/o pain, No JVD, No nuchal rigidity, No bruit, No mass, No stridor Other Neck comments:: supple; no meningeal signs; no cervical tenderness; no bruits Respiratory: Nl effort/Exclusion, Clear to Auscultation, No Wheeze/Rhonchi/Rales Cardio Vascular: RRR, No murmur, gallop, rubs, NL S1 S2, Carotid/Femoral/Distal pulses equal bilaterally GI: No tenderness/rebounding/guarding, No organomegaly, No hernia, Normal BS's, Nondistended, No mass/bruits, No McBurney tenderness, Rectum exam nl Other GI comments:: no pulsatile masses; good BS : No CVA tenderness Extremities: No tenderness or effusion, Full ROM, normal strength in all extremities, No edema, Normal digits & nails Neuro/Psych: Alert/oriented, DTR's symmetric, Normal sensory exam, Normal motor strength, Judgement/insight normal, Mood normal, Normal gait, No focal deficits Other Neuro/Psych comments:: no focal signs Misc: Normal back, No paraspinal tenderness ED Septic Shock - . Is Septic Shock (SBP<90, OR Lactate>4 mmol\L) present?: No - <6hrs of presentation: Vital Signs: Vital Signs - 8 hr 11/15/ 22:50 Temp 98.5 F HR 85 RR 18 BP 122/57 O2 Sat % 98 ED Reassessment (Disposition) - Reassessment Reassessment:: pt is asymptomatic upon discharge Reassessment Condition:: Improved - Diagnosis Diagnosis:: Insect Bites; Puncture Wounds; Insect Bite Wounds; Localized LUE Cellulitis; Localized Cellulitis - Aftercare/Follow up Instructions Aftercare/Follow-Up Instructions:: Counseled pt regarding lab results/diagnosis & need follow up, Refer to Discharge Instructions, Counseled pt & family regarding lab results/diagnosis & need follow up Medication Prescribed:: Rx: Azithromycin (Z-Pack); #6; Take as prescribed; Neosporin ointment bid x 14 days; Warm Compresses; Skin/Wound Care/Cellulitis Care Instructions - Patient Disposition Discharge/Transfer:: Home Condition at Disposition:: Stable, Improved (RTER prn if existing s/s reoccur and/or get worse and/or any other new s/s occur; ACIs given for all above Dx; Refer to Manager Pet/Vascular Surgeon/Pottery Decoration Designer KATHLEEN; F/U with PMD in one day or prn; RTER prn if concerned) ED Discharge Plan - Patient Disposition Admit/Discharge/Transfer: PT DISCHARGED HOME Instructions: Insect Bite, [id number] Additional Instructions: FOLLOW UP WITH YOUR PRIMARY MEDICAL DOCTOR KATHLEEN TAKE PRESCRIBED MEDICATIONS ORDERED.
== END 2017-11-15 23:20 | disposition home or self-care (01) ==
LOC: ER 22:42
DX: S51.832A Puncture wound without foreign body of left forearm, initial encounter (principal); L03.114 Cellulitis of left upper limb; Z88.2 Allergy status to sulfonamides; Z88.1 Allergy status to other antibiotic agents; W57.XXXA Bitten or stung by nonvenomous insect and other nonvenomous arthropods, initial encounter; Y93.89 Activity, other specified; Y92.89 Other specified places as the place of occurrence of the external cause; Y99.8 Other external cause status
CPT/HCPCS: Z7502

== ENCOUNTER 2017-11-21 14:24 | Emergency (ER) | payer MEDICAID ==
--- NOTE | 2017-11-21 15:26 | ED Physician Chart ---
ED Chief Complaint/HPI - Patient Information Date Seen:: 11/21/17 Time Seen:: 15:00 Chief Complaint:: BUMP ON HAND Allergies:: Allergies Allergy/AdvReac Type Severity Reaction Status Date / Time cephalexin monohydrate Allergy HIVES Verified 11/15/17 23:09 [From Keflex] Sulfa (Sulfonamide Allergy HIVES Verified 11/15/17 23:09 Antibiotics) ED Review of Systems - Review of Systems General/Constitutional: No fever Skin: Skin lesions Head: No headache Eyes: No loss of vision ENT: No earache Neck: No swelling Cardio Vascular: No chest pain Pulmonary: No SOB GI: No vomiting, No diarrhea G/U: No hematuria Musculoskeletal: Bone or joint pain Endocrine: No polydipsia Psychiatric: Other (known drug abuse) ED Past Medical History - Past Medical History Past Medical History: No significant medical hx Social History: Illicit Drug Use Family Medical History - Family Member Mother History Unknown: Yes Ethnicity: Non- Living Status: Unknown Hx Family Cancer: No Hx Family Coronary Artery Disease: No Hx Family Hypertension: Yes Hx Family Diabetes: Yes ED Physical Exam - Physical Examination General/Constitutional: Alert, Non-toxic appearing Head: Atraumatic Eyes: Lids, conjuctiva normal (2 subq abcesses r shoulder dorsum l hand) ED Assessment - Assessment General Assessment: skin abcess iv drug abuse ED Discharge Plan - Patient Disposition Admit/Discharge/Transfer: PT DISCHARGED HOME Condition at Disposition: Stable Instructions: Abscess Additional Instructions: Pls follow up with PCP in 1-2 days. Return to ER if symptoms worsen. Take medications as prescribed.
[2017-11-21 15:54] LABS: % BASOPHILS 0.1 % (0.0-2.0); % EOSINOPHILS 1.6 % (0.0-5.0); % LYMPHOCYTES 18.7 % (20.0-50.0); % MONOCYTES 5.6 % (2.0-10.0); EOSINOPHILE ABSOLUTE 0.2 Th/cmm (0.1-0.4); HEMATOCRIT 38.9 % (41.0-60); HEMOGLOBIN 13.4 gm/dL (12-16); LYMPHOCYTE ABSOLUTE 1.8 Th/cmm (1.5-3.0); MEAN CELL VOLUME 90.2 fl (81-100); MEAN CORPUSCULAR HEMOGLOBIN 31.1 pg (27.0-31.0); MEAN CORPUSCULAR HGB CONC 34.5 pg (28.0-36.0); MEAN PLATELET VOLUME 7.3 fl; MONOCYTE ABSOLUTE 0.5 Th/cmm (0.3-1.0); NEUTROPHILE ABSOLUTE 7.1 Th/cmm (1.8-8.0); PLATELET COUNT 257 Th/cmm (150-400); RED BLOOD COUNT 4.31 Mil/cmm (3.80-5.10); RED CELL DISTRIBUTION WIDTH 11.5 % (11.5-20.0); WHITE BLOOD COUNT 9.6 Th/cmm (4.8-10.8)
[2017-11-21] MEDS ORDERED: Clindamycin 300mg/50mL 300 MG/50 ML BAG IV ONE (16:18)
[2017-11-21] MEDS ORDERED: HYDROmorphone 1 mg/mL 1mL Syr IVP STA (17:15)
[2017-11-21] MEDS ORDERED: HYDROmorphone 1 mg/mL 1mL Syr IM STA ×2 (17:15→17:33)
[2017-11-21] MEDS ORDERED: HYDROmorphone 1 mg/mL 1mL Syr ONE (17:23)
== END 2017-11-21 18:45 | disposition home or self-care (01) ==
LOC: ER 14:24
DX: L02.413 Cutaneous abscess of right upper limb (principal); L02.512 Cutaneous abscess of left hand; Z88.1 Allergy status to other antibiotic agents; Z88.2 Allergy status to sulfonamides
CPT/HCPCS: 36415-UA; 85025-TC; 87070-90; 96375; J1170; J1885; J3490; Z7502; Z7610

== ENCOUNTER 2017-11-23 07:25 | Inpatient (IN) | payer MEDICAID ==
[2017-11-23] MEDS ORDERED: Sodium Chloride 0.9% 1,000 ML IV ONE (08:44)
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
[2017-11-23 09:13] LABS: % BASOPHILS 0.2 % (0.0-2.0); % EOSINOPHILS 3.2 % (0.0-5.0); % LYMPHOCYTES 25.9 % (20.0-50.0); % MONOCYTES 8.6 % (2.0-10.0); % NEUTROPHILS 62.1 % (40.0-80.0); EOSINOPHILE ABSOLUTE 0.2 Th/cmm (0.1-0.4); HEMATOCRIT 35.6 % (41.0-60); HEMOGLOBIN 12.2 gm/dL (12-16); LYMPHOCYTE ABSOLUTE 1.9 Th/cmm (1.5-3.0); MEAN CELL VOLUME 91.1 fl (81-100); MEAN CORPUSCULAR HEMOGLOBIN 31.2 pg (27.0-31.0); MEAN CORPUSCULAR HGB CONC 34.3 pg (28.0-36.0); MEAN PLATELET VOLUME 7.8 fl; MONOCYTE ABSOLUTE 0.6 Th/cmm (0.3-1.0); NEUTROPHILE ABSOLUTE 4.6 Th/cmm (1.8-8.0); PLATELET COUNT 242 Th/cmm (150-400); RED BLOOD COUNT 3.91 Mil/cmm (3.80-5.10); RED CELL DISTRIBUTION WIDTH 11.7 % (11.5-20.0); WHITE BLOOD COUNT 7.3 Th/cmm (4.8-10.8)
[2017-11-23] MEDS ORDERED: Morphine Sulfate 4 mg/mL 1mL Syr IV STA (09:13)
[2017-11-23] MEDS ORDERED: Morphine Sulfate 4 mg/mL 1mL Syr ONE (09:26)
[2017-11-23 09:32] LABS: ANION GAP 9.9 (7.0-16.0); BUN - UREA NITROGEN 12 mg/dL (7-25); CALCIUM SERUM 9.3 mg/dL (8.6-10.3); CARBON DIOXIDE 28.1 mEq/L (21.0-31.0); CHLORIDE 105 mEq/L (98-107); CREATININE - SERUM 0.7 mg/dL (0.6-1.2); GFR AFRICAN-AMERICAN > 60.0 ml/min (>90); GFR NON AFRICAN-AMERICAN > 60.0 ml/min; GLUCOSE 89 mg/dL (70-105); SODIUM SERUM 139 mEq/L (136-145)
== END 2017-11-23 13:30 | disposition left against medical advice (07) | DRG 383 ==
LOC: ER 07:25 → MSI 10:05
PROVIDERS: ADMIT General Practice; ATTEND General Practice
DX: L03.114 Cellulitis of left upper limb (principal); F17.210 Nicotine dependence, cigarettes, uncomplicated; L02.414 Cutaneous abscess of left upper limb; Z83.3 Family history of diabetes mellitus; Z98.51 Tubal ligation status; Z88.2 Allergy status to sulfonamides; Z88.1 Allergy status to other antibiotic agents; Z82.49 Family history of ischemic heart disease and other diseases of the circulatory system
CPT/HCPCS: 36415-UA; 80048-TC; 83735-TC; 85025-TC; 96375; J1885; J3370; J7030

== ENCOUNTER 2017-12-03 20:43 | Emergency (ER) | payer MEDICAID ==
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
== END 2017-12-03 21:40 | disposition left against medical advice (07) ==
LOC: ER 20:43
DX: F12.90 Cannabis use, unspecified, uncomplicated (principal); F13.90 Sedative, hypnotic, or anxiolytic use, unspecified, uncomplicated; R55 Syncope and collapse; S70.11XA Contusion of right thigh, initial encounter; I10 Essential (primary) hypertension; F17.210 Nicotine dependence, cigarettes, uncomplicated; Z88.1 Allergy status to other antibiotic agents; Z88.2 Allergy status to sulfonamides; X58.XXXA Exposure to other specified factors, initial encounter; Y93.89 Activity, other specified; Y92.89 Other specified places as the place of occurrence of the external cause; Y99.8 Other external cause status
CPT/HCPCS: 82948-90; Z7502